=== PATIENT | male | born 1955 | race Caucasian/White ===

== ENCOUNTER 2020-10-04 16:24 | Observation (INO) ==
[2020-10-04 17:36] LABS: POC Blood Urea Nitrogen 13 mg/dL (6-20); POC CO2 25 mmol/L (22-30); POC Calcium, Ionized 1.12 mmEq/L (1.16-1.32); POC Chloride 101 mEq/L (96-108); POC Creatinine 0.6 mg/dL (0.6-1.2); POC Glucose, Random 86 mg/dL (70-105); POC Hematocrit 38 % (41-55); POC Potassium 3.4 mEql/L (3.3-5.1); POC Sodium 137 mEq/L (133-145)
--- NOTE | 2020-10-04 18:00 | Emergency Department Note ---
HPI General Chief complaint: Recheck/Abnormal Lab/Rx Stated complaint: "wants placement in facility" Time Seen by Provider: 10/04/20 17:05 Source: patient Mode of arrival: EMS Limitations: language barrier History of Present Illness HPI Narrative: This a 65-year-old male who presents with weakness. He has been a resident at [facility] since right [facility]AO 9 months ago. Case management tells me that he left AMA on Tuesday from [facility] nursing facility he checked himself into a motel [address] here locally, but cannot care for himself so try to go back to [facility]. Unfortunately, because he signed himself out AMA they have to reauthorize him for insurance to cover his continued SNF stay. He went over to [facility] with hopes that they can get him back into [facility], but unfortunately with the same situation he was discharged back to the mot 8. He then came over here to our ER to assist with placement back to [facility]. The patient tells me that he is wheelchair dependent after a right hip fracture and repair 9 months ago. He has been doing physical therapies at [facility] for strengthening, but is essentially nonambulatory due to chronic knee flexion contractures. He also states that he feels very weak and he cannot move himself from his wheelchair to his bed or to the commode. He has been eating and drinking, but endorses a poor appetite. He is a 2 pack-a-day smoker. Has has a history of hypertension, a long history of alcoholism, and cognitive dysfunction with self-care deficits. Related Data Home Medications Medication Instructions Recorded Confirmed acetaminophen 650 mg PO Q4HP PRN 01/15/20 01/23/20 amlodipine 5 mg PO DAILY 01/15/20 01/23/20 ascorbic acid (vitamin C) [Vitamin 250 mg PO DAILY 01/15/20 01/23/20 C] baclofen 5 mg PO TID 01/15/20 01/23/20 bisacodyl 10 mg PO PRN PRN 01/15/20 01/15/20 bisacodyl [Dulcolax (bisacodyl)] 10 mg AK ONCE PRN 01/15/20 01/15/20 citalopram 20 mg PO DAILY 01/15/20 01/23/20 docusate sodium 100 mg PO BID 01/15/20 01/23/20 hydrochlorothiazide 25 mg PO DAILY 01/15/20 01/23/20 magnesium hydroxide [Milk of 30 ml PO PRN PRN 01/15/20 01/23/20 Magnesia] magnesium oxide 400 mg PO BID 01/15/20 01/23/20 metoprolol succinate 50 mg PO DAILY 01/15/20 01/23/20 multivitamin 1 tab PO DAILY 01/15/20 01/23/20 naproxen sodium [Aleve] 220 mg PO BID 01/15/20 01/23/20 oxycodone 5 mg PO QID 01/15/20 01/23/20 polyethylene glycol 3350 17 g PO DAILY 01/15/20 01/23/20 potassium chloride 20 meq PO BIDCC 01/15/20 01/23/20 sodium phosphates [Fleet Enema] 118 ml AK ONCE PRN 01/15/20 01/15/20 thiamine HCl (vitamin B1) 100 mg PO DAILY 01/15/20 01/23/20 Previous Rx's Medication Instructions Recorded aspirin 325 mg PO BID #60 tab.ec 01/24/20 hydrocodone-acetaminophen 1 - 2 tab PO Q4H PRN #90 tab 01/24/20 Allergies Allergy/AdvReac Type Severity Reaction Status Date / Time No Known Drug Allergies Allergy Verified 01/23/20 05:56 Review of Systems ROS ROS Narrative: Narrative: All systems ED: reviewed and negative except as stated. [facility] Narrative Patient History Narrative: Narrative: Medical/Surgical/Family History All Active Problems (Updated 10/04/20 @ 20:37 by Ivory Dennis PA-C) Weakness (Acute) Self-care deficit (Acute) Ambulatory dysfunction (Acute) Social History Smoking Status: Current every day smoker Exam Narrative Narrative: General: AOx3, NAD, nontoxic appearing. Pleasant and conversant. HEENT: PERRLA, EOMI, normocephalic. Dry mucous membranes. Excoriations over the left side of the face. Chest: Symmetric, no pain to palpation Respiratory: Mild expiratory wheezes in the left middle lobe. No respiratory distress. Unlabored breathing. Heart: Regular rate and rhythm, no murmurs/clicks/rubs. Abdomen: Non-tender, Non distended, normal bowel tones. No organomegaly. Extremities: Warm and well perfused. 1+ pitting edema. DP 1+ bilaterally. Chronic bilateral venous stasis. He has bilateral knee flexion contractures with knee extension limited to about 145 degrees. Neuro: No focal deficits. Cranial nerves II-XII normal. Skin: Warm dry, no rashes. 2 small level 1 decubitus ulcers to the left buttock Psych: Normal mood and affect Heme/Lymph: No bruising General Limitations: language barrier Course Course Course Narrative: 65-year-old male presents with self-care deficits and inability to care for himself due to weakness and ambulatory dysfunction with wheelchair dependence. Reevaluation(s) Reevaluation #1: Given his weakness, will check a Chem-8 and a CBC, as well as a urine Reevaluation #2: He is anemic with a hemoglobin of 11.8. Urine shows UTI. Chem-8 without electrolyte abnormalities. Vital Signs Vital signs: Vital Signs Pulse Rate 83 10/04/20 16:33 Blood Pressure 127/82 10/04/20 16:33 Pulse Oximetry (%) 91 10/04/20 16:33 Temperature 98.8 F 10/04/20 16:34 Pulse Rate 79 10/04/20 20:27 Respiratory Rate 16 10/04/20 16:34 Blood Pressure 146/52 10/04/20 20:27 Pulse Oximetry (%) 90 10/04/20 20:27 [facility] MDM Narrative Medical decision making narrative: 65-year-old male presents to the ER with inability to care for himself due to weakness and ambulatory dysfunction with wheelchair dependence after checking himself out AMA from his half-way facility yesterday. At this time I discussed the case with case management who states that he does not meet admission criteria at this time. He will need a prior there is to be readmitted to a SNF, and given the holiday weekend that cannot happen until Tuesday. Unfortunately, the patient has profound self-care deficits and the inability to care for himself and is not a safe discharge to self-care. I discussed the case with the nurse mission manager and the hospitalist on service and he has agreed to admit the patient observation overnight. Lab Data Result diagrams: 10/04/20 17:28 Labs: Lab Results 10/04/20 10/04/20 10/04/20 Range/Units 17:28 17:28 17:43 WBC 8.7 (4.5-11.0) K/mcL RBC 4.30 L (4.50-5.90) M/mcL Hgb 11.8 L (13.5-16.5) g/dL Hct 36.9 L (41.0-55.0) % POC Hct 38 L (41-55) % MCV 85.8 (80.0-100.0) fL MCH 27.4 (26.0-34.0) pg MCHC 32.0 (31.0-36.0) g/dL RDW 17.1 H (11.5-14.5) % Plt Count 314 (140-440) K/mcL MPV 9.6 (7.4-10.4) fL Neut % (Auto) 71.9 (38.0-78.0) % Lymph % (Auto) 16.5 (15.0-49.0) % [place] % (Auto) 9.7 (1.0-12.0) % Eos % (Auto) 1.3 (0.0-7.0) % Baso % (Auto) 0.6 (0.0-2.0) % Lymph # (Auto) 1.43 L (1.50-4.80) K/mcL [place] # (Auto) 0.84 (0.10-0.90) K/mcL Eos # (Auto) 0.11 (0.00-0.70) K/mcL Baso # (Auto) 0.05 (0.00-0.20) K/mcL Absolute Neutrophils 6.25 (1.80-8.00) K/mcL POC Sodium 137 (133-145) mEq/L POC Potassium 3.4 (3.3-5.1) mEql/L POC Chloride 101 (96-108) mEq/L POC Total CO2 25 (22-30) mmol/L POC BUN 13 (6-20) mg/dL POC Creatinine 0.6 (0.6-1.2) mg/dL POC Glucose 86 (70-105) mg/dL POC WB Ioniz Calcium 1.12 L (1.16-1.32) mmEq/L Urine Color Yellow Urine Appearance Clear (Clear) Urine pH 7.5 (5.0-9.0) Ur Specific [place] 1.020 (1.000-1.035) Urine Protein Trace A (Negative) mg/dL Urine Glucose (UA) Negative (Negative) mg/dL Urine Ketones 15 mg/dl A (Negative) mg/dL Urine Occult Blood Trace-intact A (Negative) sabino/mcL Urine Nitrate Negative (Negative) Urine Bilirubin Negative (Negative) mg/dL Urine Urobilinogen Normal mg/dL Ur Leukocyte Esterase Large A (Negative) /ug Urine RBC 4 H (0-3) /hpf Urine WBC 19 H (0-4) /hpf Ur Squamous Epith Cells 1 (0-4) /hpf Ur Transition Epith Cell < 1 (0-2) /hpf Urine Bacteria Mod A (0) /hpf Urine Mucus Few A (None) /hpf Ur Culture Indicated? yes ED POC Tests ED POC Tests: WEN - SARS Antigen Negative Discharge Plan Patient/Caregiver Discharge Instructions Pt seen by TECHNICAL INTERN/PA only: Yes Clinical Impression: Weakness, Self-care deficit, Ambulatory dysfunction Patient Disposition: Xfer As Inpt ([facility]) Follow up with: Everton Bill MD [Primary Care Provider] - Prescriptions: No Action multivitamin Tablet 1 tab PO DAILY RF: 0 metoprolol succinate 50 mg Tablet Extended Release 24 Hr 50 mg PO DAILY RF: 0 thiamine HCl (vitamin B1) 100 mg Tablet 100 mg PO DAILY RF: 0 amlodipine 5 mg Tablet 5 mg PO DAILY RF: 0 citalopram 20 mg Tablet 20 mg PO DAILY RF: 0 ascorbic acid (vitamin C) [Vitamin C] 250 mg Tablet 250 mg PO DAILY RF: 0 naproxen sodium [Aleve] 220 mg Tablet 220 mg PO BID RF: 0 hydrochlorothiazide 25 mg Tablet 25 mg PO DAILY RF: 0 docusate sodium 100 mg Tablet 100 mg PO BID RF: 0 oxycodone 5 mg Tablet 5 mg PO QID RF: 0 potassium chloride 20 mEq Tablet Extended Release 20 meq PO BIDCC RF: 0 baclofen 5 mg Tablet 5 mg PO TID RF: 0 magnesium oxide 400 mg magnesium Tablet 400 mg PO BID RF: 0 acetaminophen 325 mg Tablet 650 mg PO Q4HP PRN (Reason: PAIN/ELEVATED TEMP) RF: 0 polyethylene glycol 3350 17 gram Powder In Packet 17 g PO DAILY RF: 0 magnesium hydroxide [Milk of Magnesia] 400 mg/5 mL Suspension 30 ml PO PRN PRN (Reason: Constipation) RF: 0 bisacodyl [Dulcolax (bisacodyl)] 10 mg Suppository 10 mg AK ONCE PRN (Reason: Constipation) RF: 0 Fleet Enema 19-7 gram/118 mL Enema 118 ml AK ONCE PRN (Reason: Constipation) RF: 0 bisacodyl 5 mg Tablet 10 mg PO PRN PRN (Reason: Constipation) RF: 0 hydrocodone-acetaminophen 10-325 mg Tablet 1 - 2 tab PO Q4H PRN (Reason: pain) Qty: 90 RF: 0 aspirin [aspirin] 325 MG tablet,delayed release (DR/EC) 325 mg PO BID Qty: 60 RF: 0
[2020-10-04 18:08] LABS: Basophils # (Auto) 0.05 K/mcL (0.00-0.20); Basophils % (Auto) 0.6 % (0.0-2.0); Eosinophils # (Auto) 0.11 K/mcL (0.00-0.70); Eosinophils % (Auto) 1.3 % (0.0-7.0); Hematocrit 36.9 % (41.0-55.0); Hemoglobin 11.8 g/dL (13.5-16.5); Lymphocytes # (Auto) 1.43 K/mcL (1.50-4.80); Lymphocytes % (Auto) 16.5 % (15.0-49.0); Mean Cell Volume 85.8 fL (80.0-100.0); Mean Platelet Volume 9.6 fL (7.4-10.4); Monocytes # (Auto) 0.84 K/mcL (0.10-0.90); Monocytes % (Auto) 9.7 % (1.0-12.0); Neutrophils % (Auto) 71.9 % (38.0-78.0); Platelet Count 314 K/mcL (140-440); Red Cell Distribution Width 17.1 % (11.5-14.5); WBC 8.7 K/mcL (4.5-11.0)
[2020-10-04 18:12] LABS: Appearance,Urine Clear (Clear); Bacteria,Urine MOD /hpf (0); Bilirubin,Urine Negative (Negative); Color,Urine Yellow; Culture Indicated,Urine yes; Glucose,Urine (UA) Negative (Negative); Ketones,Urine 15 mg/dL mg/dL (Negative); Leukocyte Esterase,Urine Large /ug (Negative); Mucus,Urine FEW /hpf; Nitrate,Urine Negative (Negative); PH,Urine 7.5 (5.0-9.0); Protein,Urine Trace mg/dL (Negative); Urine Blood Trace-intact ery/mcL (Negative); Urine RBC 4 /hpf (0-3); Urine Squamous Epithelial Cell 1 /hpf (0-4); Urine Transitional Epi Cells < 1 /hpf (0-2); Urine WBC 19 /hpf (0-4); Urobilinogen,Urine Normal
[2020-10-04] MEDS ORDERED: CEPHALEXIN 250 MG CAPSULE PO ONE (19:24)
[2020-10-04] MEDS ORDERED: CEPHALEXIN (PP) 250 MG CAPSULE (#4) PO SCH (19:45)
--- NOTE | 2020-10-04 20:10 | Internal Med History&Physical ---
HPI History of Present Illness Patient information: Note initiated : 10/04/20 at 8:07 pm Service Date, if different from initiated Date: [] Patient: Campbell Rodriguez 65 y/o M admitted on for "wants placement in facility". Chief Complaint: [] History of present illness: Mr. Rodriguez is a 65 year old M Presents the ED try to get back into a nursing facility. Patient was at [facility] and April for buttocks wound with maggots not caring for himself history of alcoholism. He was in [facility] for over a week and discharged to nursing facility. He left AMA from the nursing facility about 3 days ago and been living in a motel. He went to [facility] today to try to get back in nursing facility but they would not take him and he needs to be reevaluated but did not meet any admission criteria so was discharged. He then came over to [facility] because he cannot take care of himself he cannot transition from wheelchair he is a high risk for a number of situations including Falling, pressure wounds and subsequent infection. The patient has nobody to help care for him while awaiting placement back in SNF In the ED is found to have a low sodium he does have a history of hyponatremia but this is acute on chronic. also found to have a UTI. Review of Systems: Positive as above. Denies headache/fever/chills/nausea/vomiting/chest or abdominal pain/cough/dyspnea/diarrhea. Otherwise see above. MEDS/ALLERGIES Home Medications and Allergies Home Medications Medication Instructions Recorded Confirmed Type acetaminophen 650 mg PO Q4HP PRN 01/15/20 01/23/20 History amlodipine 5 mg PO DAILY 01/15/20 01/23/20 History ascorbic acid (vitamin C) [Vitamin 250 mg PO DAILY 01/15/20 01/23/20 History C] baclofen 5 mg PO TID 01/15/20 01/23/20 History bisacodyl 10 mg PO PRN PRN 01/15/20 01/15/20 History bisacodyl [Dulcolax (bisacodyl)] 10 mg AL ONCE PRN 01/15/20 01/15/20 History citalopram 20 mg PO DAILY 01/15/20 01/23/20 History docusate sodium 100 mg PO BID 01/15/20 01/23/20 History hydrochlorothiazide 25 mg PO DAILY 01/15/20 01/23/20 History magnesium hydroxide [Milk of 30 ml PO PRN PRN 01/15/20 01/23/20 History Magnesia] magnesium oxide 400 mg PO BID 01/15/20 01/23/20 History metoprolol succinate 50 mg PO DAILY 01/15/20 01/23/20 History multivitamin 1 tab PO DAILY 01/15/20 01/23/20 History naproxen sodium [Aleve] 220 mg PO BID 01/15/20 01/23/20 History oxycodone 5 mg PO QID 01/15/20 01/23/20 History polyethylene glycol 3350 17 g PO DAILY 01/15/20 01/23/20 History potassium chloride 20 meq PO BIDCC 01/15/20 01/23/20 History sodium phosphates [Fleet Enema] 118 ml AL ONCE PRN 01/15/20 01/15/20 History thiamine HCl (vitamin B1) 100 mg PO DAILY 01/15/20 01/23/20 History aspirin 325 mg PO BID #60 tab.ec 01/24/20 Rx hydrocodone-acetaminophen 1 - 2 tab PO Q4H PRN #90 tab 01/24/20 Rx Allergies Allergy/AdvReac Type Severity Reaction Status Date / Time No Known Drug Allergies Allergy Verified 01/23/20 05:56 EXAM Constitutional Vitals: Temp Pulse Resp BP Pulse Ox 98.8 F 86 16 150/66 91 10/04/20 16:34 10/04/20 20:01 10/04/20 16:34 10/04/20 20:01 10/04/20 20:01 Exam: General: Alert, Awake, No acute Distress Eyes/N/T: EOMI, PERRL, Head/Neck: neck supple, normocephalic atraumatic CV: RRR, No murmurs, normal s1/s2 Pulm: Clear b/l, no wheezing/rhonchi/rales Abd: soft, nontender, +BS x4 Ext: no clubbing/cyanosis, evidence of cast edema, venous stasis Neuro: Alert, no focal deficits, moves all extremities, CN 2-12 grossly intact, symmetrical strength b/l upper/lower, sensations intact b/l upper/lower Skin: warm/dry DATA Data Completed and Pending Labs: Labs from last 24 hours 10/04/20 10/04/20 10/04/20 17:43 17:28 17:28 WBC 8.7 RBC 4.30 L Hgb 11.8 L Hct 36.9 L POC Hct 38 L MCV 85.8 MCH 27.4 MCHC 32.0 RDW 17.1 H Plt Count 314 MPV 9.6 Neut % (Auto) 71.9 Lymph % (Auto) 16.5 [place] % (Auto) 9.7 Eos % (Auto) 1.3 Baso % (Auto) 0.6 Lymph # (Auto) 1.43 L [place] # (Auto) 0.84 Eos # (Auto) 0.11 Baso # (Auto) 0.05 Absolute Neutrophils 6.25 POC Sodium 137 POC Potassium 3.4 POC Chloride 101 POC Total CO2 25 POC BUN 13 POC Creatinine 0.6 POC Glucose 86 POC WB Ioniz Calcium 1.12 L Urine Color Yellow Urine Appearance Clear Urine pH 7.5 Ur Specific [place] 1.020 Urine Protein Trace A Urine Glucose (UA) Negative Urine Ketones 15 mg/dl A Urine Occult Blood Trace-intact A Urine Nitrate Negative Urine Bilirubin Negative Urine Urobilinogen Normal Ur Leukocyte Esterase Large A Urine RBC 4 H Urine WBC 19 H Ur Squamous Epith Cells 1 Ur Transition Epith Cell < 1 Urine Bacteria Mod A Urine Mucus Few A Ur Culture Indicated? yes A/P Narrative A/P Narrative: A: *Self-care deficit/Severe disability: pt is unsafe discharge from ED *Hyponatremia, acute on chronic: *UTI: *h/o alcoholism: Has not had any alcohol at the nursing facility and states he only has 3 beers since he got out 3 days ago *Anemia, chronic: *Tobacco abuse: * P: -IVF, f/u sodium -urine studies -Rocephin pending UC -hold home hctz if on -clarify home meds -CM for placement -pt/ot -Looking cessation counseling -ppx: lovenox DNR Time Spent With Patient Time: Total time spent is greater than 50% in coordination of care (as documented) at patient's floor/unit and/or counseling patient:
[2020-10-04] MEDS ORDERED: POTASSIUM CHLORIDE 40 MEQ in DEXTROSE 5% IN WATER 500 ML IV PRN (21:33)
[2020-10-04] MEDS ORDERED: POLYETHYLENE GLYCOL 3350 17 GM PACKET PO PRN (21:33)
[2020-10-04] MEDS ORDERED: 0.9 % SODIUM CHLORIDE 1,000 ML IV SCH (21:33)
[2020-10-04] MEDS ORDERED: ONDANSETRON 4 MG/2 ML VIAL IV PRN (21:33)
[2020-10-04] MEDS ORDERED: MAGNESIUM SULFATE 2 GM/50 ML BAG IV PRN (21:33)
[2020-10-04] MEDS ORDERED: SENNOSIDES 1 TABLET PO PRN (21:33)
[2020-10-04] MEDS ORDERED: ACETAMINOPHEN 325 MG TABLET PO PRN (21:33)
[2020-10-04] MEDS ORDERED: SODIUM CHLORIDE 1 GM TABLET PO SCH (21:33)
[2020-10-04] MEDS ORDERED: POTASSIUM CHLORIDE 20 MEQ TABLET PO PRN ×2 (21:33)
[2020-10-04] MEDS ORDERED: IPRATROPIUM/ALBUTEROL 3 ML AMPUL.NEB NEB PRN (21:33)
[2020-10-04] MEDS: DOCUSATE SODIUM 100 MG CAPSULE PO SCH (22:31)
[2020-10-04] MEDS: 0.9 % SODIUM CHLORIDE 10 ML SYRINGE IV SCH (22:31)
[2020-10-04 22:43] LABS: Amphetamine Screen,Urine None detected; Barbiturate Screen,Urine None detected; Benzodiazepines Screen,Urine None detected; Cannabinoid Screen,Urine None detected; Cocaine Screen,Urine None detected; Opiate Screen,Urine None detected; Oxycodone, Urine Screen Suspect Positive; Phencyclidine Screen,Urine None detected
[2020-10-04] MEDS: cefTRIAXone 1 GM VIAL IV SCH (22:52)
[2020-10-05] MEDS: 0.9 % SODIUM CHLORIDE 10 ML SYRINGE IV SCH ×3 (05:29→20:44)
[2020-10-05] MEDS ORDERED: FLEETS ADULT ENEMA PR PRN (07:24)
[2020-10-05] MEDS ORDERED: oxyCODONE HCL 5 MG TABLET PO PRN (07:24)
--- NOTE | 2020-10-05 07:28 | Internal Med Progress Note ---
SUBJECTIVE Subjective Patient information: Note initiated : 10/05/20 at 7:23 am Service Date, if different from initiated Date: [] Patient: Campbell Rodriguez 65 y/o M admitted on 10/04/20 for "wants placement in facility". Chief Complaint: [] Interval history: History of present illness: Mr. Rodriguez is a 65 year old M Presents the ED try to get back into a nursing facility. Patient was at [facility] and April for buttocks wound with maggots not caring for himself history of alcoholism. [facility] facility. He left AMA from the nursing facility about 3 days ago and been living in a motel. He went to [facility] today to try to get back in nursing facility but they would not take him and he needs to be reevaluated but did not meet any admission criteria so was discharged. He then came over to [facility] because he cannot take care of himself he cannot transition from wheelchair he is a high risk for a number of situations including Falling, pressure wounds and subsequent infection. The patient has nobody to help care for him while awaiting placement back in SNF In the ED is found to have a low sodium he does have a history of hyponatremia but this is acute on chronic. also found to have a UTI. / No overnight event or new complaints. Review of Systems: denies headache/fever/chills/nausea/vomiting/chest or abdominal pain/cough/dyspnea/diarrhea. Otherwise see above. Constitutional Vitals: Vital Signs Temp Pulse Resp BP Pulse Ox 98.9 F 75 16 152/68 94 10/05/20 06:45 10/05/20 06:45 10/05/20 06:45 10/05/20 06:45 10/05/20 06:45 Period Temp Pulse Resp BP Sys/May Pulse Ox Last 24 Hr 98 F-98.9 F 74-88 12-20 127-164/51-82 90-95 Intake and Output 10/04/20 10/05/20 10/05/20 21:59 05:59 13:59 Intake Total 100 Output Total 350 Balance -250 Weight 77.111 kg Intake & Output: Intake & Output 10/04/20 10/05/20 10/05/20 21:59 05:59 13:59 Intake Total 100 Output Total 350 Balance -250 Weight 77.111 kg Intake: Oral 100 Output: Void Amount 350 Other: Meal tuna sandwich Percent of Meal Consumed 100% Feeding Ability Independent Urine Appearance Clear Urine Color Bright Yellow Exam: General: Alert, Awake, No acute Distress Eyes/N/T: EOMI, Head/Neck: neck supple, CV: RRR, No murmurs, Pulm: Clear b/l, no wheezing/rhonchi/rales Abd: soft, nontender, +BS x4 Ext: no clubbing/cyanosis, evidence of h/o edema, venous stasis Neuro: Alert, no focal deficits, moves all extremities, Skin: warm/dry OBJ DATA Labs CBC & Chem 7: 10/04/20 17:28 10/05/20 05:45 Labs: Abnormal Lab Results 10/04/20 10/04/20 10/04/20 19:57 17:43 17:28 RBC 4.30 L Hgb 11.8 L Hct 36.9 L POC Hct RDW 17.1 H Lymph # (Auto) 1.43 L POC WB Ioniz Calcium Urine Protein Trace A Urine Ketones 15 mg/dl A Urine Occult Blood Trace-intact A Ur Leukocyte Esterase Large A Urine RBC 4 H Urine WBC 19 H Urine Bacteria Mod A Urine Mucus Few A Ur Oxycodone Screen Suspect positive A 10/04/20 17:28 RBC Hgb Hct POC Hct 38 L RDW Lymph # (Auto) POC WB Ioniz Calcium 1.12 L Urine Protein Urine Ketones Urine Occult Blood Ur Leukocyte Esterase Urine RBC Urine WBC Urine Bacteria Urine Mucus Ur Oxycodone Screen Meds: Medications Acetaminophen (Acetaminophen 325 Mg Tablet) 650 mg PO Q6HP PRN PRN Reason: PAIN/FEVER > 101 Albuterol/Ipratropium (Ipratropium/Albuterol 3 Ml Ampul.Neb) 3 ml NEB Q4HP PRN PRN Reason: Shortness Of Breath Ceftriaxone Sodium (Ceftriaxone 1 Gm Vial) 1 gm IV Q24H [facility]; Protocol Last Admin: 10/04/20 22:52 Dose: 1 gm Documented by: Docusate Sodium (Docusate Sodium 100 Mg Capsule) 100 mg PO BID DAO Last Admin: 10/04/20 22:31 Dose: Not Given Documented by: Enoxaparin Sodium (Enoxaparin 40 Mg/0.4 Ml Syringe) 40 mg SQ DAILY [facility] Potassium Chloride 40 meq/ (Dextrose) 520 mls @ 130 mls/hr IV UD PRN PRN Reason: Potassium < 3 Magnesium Sulfate (Magnesium Sulfate) 2 gm in 50 mls @ 50 mls/hr IV UD PRN PRN Reason: Magnesium </= 1.6 Sodium Chloride (Sodium Chloride 0.9%) 1,000 mls @ 100 mls/hr IV .Q10H [facility] Stop: 10/05/20 07:32 Last Admin: 10/04/20 22:31 Dose: 100 mls/hr Documented by: Labetalol HCl (Labetalol 5 Mg/Ml Ml) 0 mg IV Q2HP PRN PRN Reason: Hypertension Nicotine (Nicotine 21 Mg Patch) 21 mg TOPICAL DAILY@1000 [facility] Ondansetron HCl (Ondansetron 4 Mg/2 Ml Vial) 4 mg IV Q4HP PRN PRN Reason: Nausea And Vomiting Polyethylene Glycol (Polyethylene Glycol 3350 17 Gm Packet) 17 gm PO DAILYP PRN PRN Reason: Constipation Potassium Chloride (Potassium Chloride 20 Meq Tablet) 40 meq PO UD PRN PRN Reason: Potssium is 3-3.5 Potassium Chloride (Potassium Chloride 20 Meq Tablet) 40 meq PO UD PRN PRN Reason: Potassium < 3 Senna (Sennosides 1 Tablet) 2 tab PO DAILYP PRN PRN Reason: Constipation Sodium Chloride (0.9 % Sodium Chloride 10 Ml Syringe) 10 ml IV Q8 [facility] Last Admin: 10/05/20 05:29 Dose: Not Given Documented by: Sodium Chloride (Sodium Chloride 1 Gm Tablet) 1 gm PO TID [facility] Last Admin: 10/04/20 22:52 Dose: 1 gm Documented by: A/P Narrative A/P Narrative: A: *Self-care deficit/Severe disability: pt is unsafe discharge from ED *UTI: *h/o alcoholism: Has not had any alcohol at the nursing facility and states he only has 3 beers since he got out 3 days ago *Anemia, chronic: *Tobacco abuse: *HTN: on norvasc *Depression: *buttock pressure ulcer P: -Rocephin pending UC -cont home norvas/BB -cont home baclofen -wound care -CM for placement -pt/ot -Looking cessation counseling -ppx: lovenox DNR Time Spent With Patient Time: Total time spent is greater than 50% in coordination of care (as documented) at patient's floor/unit and/or counseling patient: QUALITY Stroke Symptom Onset Unknown: No VTE Deep Vein Thrombosis/Pulmonary Embolism Present on Admission: No
[2020-10-05 07:35] LABS: ALT/SGPT 7 U/L (<40); AST/SGOT 10 U/L (<40); Albumin 3.2 gm/dL (3.2-5.2); Albumin/Globulin Ratio 0.8 (1.0-2.3); Alkaline Phosphatase 102 U/L (39-117); Bilirubin,Direct < 0.2 mg/dL (0-0.3); Bilirubin,Total 0.3 mg/dL (0.1-1.0); Blood Urea Nitrogen 13 mg/dL (8-23); Calcium 8.9 mg/dL (8.6-10.4); Carbon Dioxide 24 mmol/L (22-30); Chloride 104 mmol/L (96-108); Globulin 3.9 gm/dL (2.2-3.7); Glomerular Filtration Rate 105; Glucose 81 mg/dL (70-105); Lactate Dehydrogenase 164 U/L (135-225); Phosphorous 3.3 mg/dL (2.5-4.5); Triglycerides 88 mg/dL (<150); Uric Acid 7.8 mg/dL (2.5-8.0)
[2020-10-05 08:00] LABS: Sodium, Urine Random 82 mmol/L; Uric Acid 7.3 mg/dL (2.5-8.0)
[2020-10-05 08:17] LABS: Osmolality,Urine 412 mOSM/kg (80-1000)
--- NOTE | 2020-10-05 09:05 | Discharge Summary ---
Discharge Provider Provider Patient information: Note initiated : 10/05/20 at 9:04 am Service Date, if different from initiated Date: [] Patient: Campbell Rodriguez 65 y/o M admitted on 10/04/20 for "wants placement in facility". Chief Complaint: [] Date of admission: 10/04/20 21:31 Discharge date: 10/06/20 Primary care physician: Everton Bill Consults: 10/05/20 08:22 Consult to Physician [CONS] Routine Comment: Consulting Provider: [place] Reason For Exam: Physician to Consult Discharge Meds Discharge Medications Home Medications acetaminophen 650 mg PO Q4HP PRN 01/15/20 [History Confirmed 10/04/20 Last Taken 01/22/20] amlodipine 5 mg PO DAILY 01/15/20 [History Confirmed 10/04/20 Last Taken 10/03/20 07:00] ascorbic acid (vitamin C) [Vitamin C] 250 mg PO DAILY 01/15/20 [History Confirmed 10/04/20 Last Taken 10/03/20 07:00] baclofen 5 mg PO TID 01/15/20 [History Confirmed 10/04/20 Last Taken 10/03/20 12:00] bisacodyl [Dulcolax (bisacodyl)] 10 mg ND PRN PRN 01/15/20 [History Confirmed 10/04/20 Last Taken Unknown] citalopram 20 mg PO DAILY 01/15/20 [History Confirmed 10/04/20 Last Taken 10/03/20 07:00] docusate sodium 100 mg PO BID 01/15/20 [History Confirmed 10/04/20 Last Taken 10/03/20 07:00] hydrochlorothiazide 25 mg PO DAILY 01/15/20 [History Confirmed 10/04/20 Last Taken 10/03/20 07:00] metoprolol succinate 50 mg PO DAILY 01/15/20 [History Confirmed 10/04/20 Last Taken 10/03/20 07:00] multivitamin 1 tab PO DAILY 01/15/20 [History Confirmed 10/04/20 Last Taken 10/03/20 07:00] oxycodone 5 mg PO QID 01/15/20 [History Confirmed 10/04/20 Last Taken 10/03/20 12:00] polyethylene glycol 3350 17 g PO DAILY 01/15/20 [History Confirmed 10/04/20 Last Taken 10/03/20 07:00] potassium chloride 20 meq PO BIDCC 01/15/20 [History Confirmed 10/04/20 Last Taken 10/03/20 07:00] thiamine HCl (vitamin B1) 100 mg PO DAILY 01/15/20 [History Confirmed 10/04/20 Last Taken 10/03/20 07:00] Fleet Enema 118 ml ND PRN PRN 10/04/20 [History Confirmed 10/05/20 Last Taken Unknown] cholecalciferol (vitamin D3) [Vitamin D3] 1,000 unit PO DAILY 10/04/20 [History Confirmed 10/04/20 Last Taken 10/03/20 07:00] ferrous sulfate 325 mg PO BID 10/04/20 [History Confirmed 10/04/20 Last Taken 10/03/20 07:00] omeprazole 20 mg PO QDAY 10/04/20 [History Confirmed 10/04/20 Last Taken 10/03/20 07:00] ranitidine HCl 150 mg PO DAILYP PRN 10/04/20 [History Confirmed 10/04/20 Last Taken Unknown] magnesium hydroxide [Milk of Magnesia] 30 ml PO PRN PRN 10/05/20 [History Confirmed 10/05/20 Last Taken 10/02/20 21:56] amoxicillin 500 mg PO TID #9 cap 10/06/20 [Rx Last Taken Unknown] COURSE Hospital Course Hospital course: History of present illness: Mr. Rodriguez is a 65 year old M Presents the ED try to get back into a nursing facility. Patient was at [facility] and April for buttocks wound with maggots not caring for himself history of alcoholism. [facility] to nursing facility. He left AMA from the nursing facility about 3 days ago and been living in a motel. He went to [facility] today to try to get back in nursing facility but they would not take him and he needs to be reevaluated but did not meet any admission criteria so was discharged. He then came over to [facility] because he cannot take care of himself he cannot transition from wheelchair he is a high risk for a number of situations including Falling, pressure wounds and subsequent infection. The patient has nobody to help care for him while awaiting placement back in SNF In the ED is found to have a low sodium he does have a history of hyponatremia but this is acute on chronic. also found to have a UTI. / No overnight event or new complaints. / No overnight event or new complaints. No changes in status. A: *Self-care deficit/Severe disability: pt is unsafe discharge from ED *UTI(enteroccus): *h/o alcoholism: Has not had any alcohol at the nursing facility and states he only has 3 beers since he got out 3 days ago *Anemia, chronic: *Tobacco abuse: *HTN: on norvasc *Depression: *buttock pressure ulcer Discharge diagnosis: Inability to care for self UTI Secondary discharge diagnosis: Chronic anemia tobacco abuse hypertension depression Time Spent with Patient Time attestation: Total time spent providing and/or coordinating discharge services: Time spent: Greater than 30 minutes EXAM Constitutional Vitals: Temp Pulse Resp BP Pulse Ox 98.9 F 75 16 152/68 94 10/05/20 06:45 10/05/20 06:45 10/05/20 06:45 10/05/20 06:45 10/05/20 06:45 Discharge Data Data Completed and Pending Labs on day of discharge: Labs from last 24 hours 10/05/20 10/04/20 10/04/20 05:45 21:19 21:19 WBC RBC Hgb Hct POC Hct MCV MCH MCHC RDW Plt Count MPV Neut % (Auto) Lymph % (Auto) [facility] % (Auto) Eos % (Auto) Baso % (Auto) Lymph # (Auto) [facility] # (Auto) Eos # (Auto) Baso # (Auto) Absolute Neutrophils POC Sodium Sodium 139 POC Potassium Potassium 3.7 POC Chloride Chloride 104 Carbon Dioxide 24 POC Total CO2 Anion Gap 11.0 POC BUN BUN 13 Creatinine 0.6 L POC Creatinine GFR Calculation 105 Glucose 81 POC Glucose Osmolality 294 Uric Acid 7.8 7.3 Calcium 8.9 POC WB Ioniz Calcium Phosphorus 3.3 Magnesium 1.8 Total Bilirubin 0.3 Direct Bilirubin < 0.2 GGT 16 AST 10 ALT 7 Alkaline Phosphatase 102 Lactate Dehydrogenase 164 Total Protein 7.1 Albumin 3.2 Globulin 3.9 H Albumin/Globulin Ratio 0.8 L Triglycerides 88 Urine Color Urine Appearance Urine pH Ur Specific [place] Urine Protein Urine Glucose (UA) Urine Ketones Urine Occult Blood Urine Nitrate Urine Bilirubin Urine Urobilinogen Ur Leukocyte Esterase Urine RBC Urine WBC Ur Squamous Epith Cells Ur Transition Epith Cell Urine Bacteria Urine Mucus Ur Culture Indicated? Urine Osmolality 412 Ur Random Sodium 82 Urine Opiates Screen Ur Opiates Confirm Ur Oxycodone Screen Urine Methadone Screen Ur Methadone Confirm Ur Barbiturates Screen Ur Barbiturate Confirm Ur Phencyclidine Scrn Urine PCP Confirm Ur Amphetamines Screen U Amphetamines Confirm U Benzodiazepines Scrn U Benzodiazepine Confm Urine Cocaine Screen Urine Cocaine Confirm U Cannabinoids Confirm U Marijuana (THC) Screen Ethyl Alcohol 10/04/20 10/04/20 10/04/20 19:57 19:57 17:43 WBC RBC Hgb Hct POC Hct MCV MCH MCHC RDW Plt Count MPV Neut % (Auto) Lymph % (Auto) [facility] % (Auto) Eos % (Auto) Baso % (Auto) Lymph # (Auto) [facility] # (Auto) Eos # (Auto) Baso # (Auto) Absolute Neutrophils POC Sodium Sodium POC Potassium Potassium POC Chloride Chloride Carbon Dioxide POC Total CO2 Anion Gap POC BUN BUN Creatinine POC Creatinine GFR Calculation Glucose POC Glucose Osmolality Uric Acid Calcium POC WB Ioniz Calcium Phosphorus Magnesium Total Bilirubin Direct Bilirubin GGT AST ALT Alkaline Phosphatase Lactate Dehydrogenase Total Protein Albumin Globulin Albumin/Globulin Ratio Triglycerides Urine Color Yellow Urine Appearance Clear Urine pH 7.5 Ur Specific [place] 1.020 Urine Protein Trace A Urine Glucose (UA) Negative Urine Ketones 15 mg/dl A Urine Occult Blood Trace-intact A Urine Nitrate Negative Urine Bilirubin Negative Urine Urobilinogen Normal Ur Leukocyte Esterase Large A Urine RBC 4 H Urine WBC 19 H Ur Squamous Epith Cells 1 Ur Transition Epith Cell < 1 Urine Bacteria Mod A Urine Mucus Few A Ur Culture Indicated? yes Urine Osmolality Ur Random Sodium Urine Opiates Screen None detected Ur Opiates Confirm Not Reportable Ur Oxycodone Screen Suspect positive A Urine Methadone Screen None detected Ur Methadone Confirm Not Reportable Ur Barbiturates Screen None detected Ur Barbiturate Confirm Not Reportable Ur Phencyclidine Scrn None detected Urine PCP Confirm Not Reportable Ur Amphetamines Screen None detected U Amphetamines Confirm Not Reportable U Benzodiazepines Scrn None detected U Benzodiazepine Confm Not Reportable Urine Cocaine Screen None detected Urine Cocaine Confirm Not Reportable U Cannabinoids Confirm Not Reportable U Marijuana (THC) Screen None detected Ethyl Alcohol TNP 10/04/20 10/04/20 17:28 17:28 WBC 8.7 RBC 4.30 L Hgb 11.8 L Hct 36.9 L POC Hct 38 L MCV 85.8 MCH 27.4 MCHC 32.0 RDW 17.1 H Plt Count 314 MPV 9.6 Neut % (Auto) 71.9 Lymph % (Auto) 16.5 [facility] % (Auto) 9.7 Eos % (Auto) 1.3 Baso % (Auto) 0.6 Lymph # (Auto) 1.[address] [facility] # (Auto) 0.84 Eos # (Auto) 0.11 Baso # (Auto) 0.05 Absolute Neutrophils 6.25 POC Sodium 137 Sodium POC Potassium 3.4 Potassium POC Chloride 101 Chloride Carbon Dioxide POC Total CO2 25 Anion Gap POC BUN 13 BUN Creatinine POC Creatinine 0.6 GFR Calculation Glucose POC Glucose 86 Osmolality Uric Acid Calcium POC WB Ioniz Calcium 1.12 L Phosphorus Magnesium Total Bilirubin Direct Bilirubin GGT AST ALT Alkaline Phosphatase Lactate Dehydrogenase Total Protein Albumin Globulin Albumin/Globulin Ratio Triglycerides Urine Color Urine Appearance Urine pH Ur Specific [place] Urine Protein Urine Glucose (UA) Urine Ketones Urine Occult Blood Urine Nitrate Urine Bilirubin Urine Urobilinogen Ur Leukocyte Esterase Urine RBC Urine WBC Ur Squamous Epith Cells Ur Transition Epith Cell Urine Bacteria Urine Mucus Ur Culture Indicated? Urine Osmolality Ur Random Sodium Urine Opiates Screen Ur Opiates Confirm Ur Oxycodone Screen Urine Methadone Screen Ur Methadone Confirm Ur Barbiturates Screen Ur Barbiturate Confirm Ur Phencyclidine Scrn Urine PCP Confirm Ur Amphetamines Screen U Amphetamines Confirm U Benzodiazepines Scrn U Benzodiazepine Confm Urine Cocaine Screen Urine Cocaine Confirm U Cannabinoids Confirm U Marijuana (THC) Screen Ethyl Alcohol Preliminary micro results at discharge 10/04/20 17:43 Urine Culture - Preliminary Urine - Clean Void Mid-Stream Discharge Plan Patient/Caregiver Discharge Instructions Activity: increase activity as tolerated Diet: Regular Diet Prescriptions: New amoxicillin 250 mg Capsule 500 mg PO TID Qty: 9 RF: 0 Continued multivitamin Tablet 1 tab PO DAILY RF: 0 metoprolol succinate 50 mg Tablet Extended Release 24 Hr 50 mg PO DAILY RF: 0 thiamine HCl (vitamin B1) 100 mg Tablet 100 mg PO DAILY RF: 0 amlodipine 5 mg Tablet 5 mg PO DAILY RF: 0 citalopram 20 mg Tablet 20 mg PO DAILY RF: 0 ascorbic acid (vitamin C) [Vitamin C] 250 mg Tablet 250 mg PO DAILY RF: 0 hydrochlorothiazide 25 mg Tablet 25 mg PO DAILY RF: 0 docusate sodium 100 mg Tablet 100 mg PO BID RF: 0 oxycodone 5 mg Tablet 5 mg PO QID RF: 0 potassium chloride 20 mEq Tablet Extended Release 20 meq PO BIDCC RF: 0 baclofen 5 mg Tablet 5 mg PO TID RF: 0 acetaminophen 325 mg Tablet 650 mg PO Q4HP PRN (Reason: PAIN/ELEVATED TEMP) RF: 0 polyethylene glycol 3350 17 gram Powder In Packet 17 g PO DAILY RF: 0 bisacodyl [Dulcolax (bisacodyl)] 10 mg Suppository 10 mg ND PRN PRN (Reason: Constipation) RF: 0 omeprazole 20 mg Capsule,Delayed Release(Dr/Ec) 20 mg PO QDAY RF: 0 ranitidine HCl 150 mg Tablet 150 mg PO DAILYP PRN (Reason: Abdominal Discomfort) RF: 0 cholecalciferol (vitamin D3) [Vitamin D3] 25 mcg (1,000 unit) Tablet 1,000 unit PO DAILY RF: 0 ferrous sulfate 325 mg (65 mg iron) Tablet 325 mg PO BID RF: 0 Fleet Enema 19-7 gram/118 mL Enema 118 ml ND PRN PRN (Reason: Constipation) RF: 0 magnesium hydroxide [Milk of Magnesia] 400 mg/5 mL Suspension 30 ml PO PRN PRN (Reason: Constipation) RF: 0 Follow Up Plan Follow up with: Everton Bill MD [Primary Care Provider] - Patient Disposition: Xfer SNF Prognosis: Fair Rehab Potential: Fair I certify that the patient requires SNF services: Yes Overall status at discharge: patient is progressing back to baseline Discharge Orders: Discharge Order (Routine); Ordered 10/06/20 Ordered By: Cal River [facility] VTE Deep Vein Thrombosis/Pulmonary Embolism Present on Admission: No
[2020-10-05] MEDS: FERROUS SULFATE 325 MG TABLET PO SCH ×2 (10:46→16:07)
[2020-10-05] MEDS: DOCUSATE SODIUM 100 MG CAPSULE PO SCH ×2 (10:46→20:44)
[2020-10-05] MEDS: CITALOPRAM 20 MG TABLET PO SCH (10:46)
[2020-10-05] MEDS: BACLOFEN 10 MG TABLET PO SCH ×3 (10:47→20:44)
[2020-10-05] MEDS: amLODIPine 5 MG TABLET PO SCH (10:48)
[2020-10-05] MEDS: METOPROLOL SUCCINATE 50 MG TAB.XL.24H PO SCH (10:49)
[2020-10-05] MEDS: THIAMINE 100 MG TABLET PO SCH (10:49)
[2020-10-05] MEDS: OMEPRAZOLE 20 MG CAPSULE PO SCH (10:49)
[2020-10-05] MEDS: ENOXAPARIN 40 MG/0.4 ML SYRINGE SQ SCH (10:50)
[2020-10-05] MEDS: NICOTINE 21 MG PATCH TOPICAL SCH (10:56)
[2020-10-05] MEDS: POLYETHYLENE GLYCOL 3350 17 GM PACKET PO SCH (10:59)
[2020-10-05] MEDS: cefTRIAXone 1 GM VIAL IV SCH (14:26)
[2020-10-06] MEDS: 0.9 % SODIUM CHLORIDE 10 ML SYRINGE IV SCH ×3 (07:05→21:06)
[2020-10-06] MEDS: FERROUS SULFATE 325 MG TABLET PO SCH ×2 (07:06→16:42)
[2020-10-06] MEDS: OMEPRAZOLE 20 MG CAPSULE PO SCH (07:06)
--- NOTE | 2020-10-06 07:19 | Internal Med Progress Note ---
SUBJECTIVE Subjective Patient information: Note initiated : 10/06/20 at 7:18 am Service Date, if different from initiated Date: [] Patient: Campbell Rodriguez 65 y/o M admitted on 10/04/20 for "wants placement in facility". Chief Complaint: [] Interval history: History of present illness: Mr. Rodriguez is a 65 year old M Presents the ED try to get back into a nursing facility. Patient was at [facility] and April for buttocks wound with maggots not caring for himself history of alcoholism. [facility] to nursing facility. He left AMA from the nursing facility about 3 days ago and been living in a motel. He went to [facility] today to try to get back in nursing facility but they would not take him and he needs to be reevaluated but did not meet any admission criteria so was discharged. He then came over to [facility] because he cannot take care of himself he cannot transition from wheelchair he is a high risk for a number of situations including Falling, pressure wounds and subsequent infection. The patient has nobody to help care for him while awaiting placement back in SNF In the ED is found to have a low sodium he does have a history of hyponatremia but this is acute on chronic. also found to have a UTI. 4/4 No overnight event or new complaints. 4/5 No overnight event or new complaints. No changes in status. Review of Systems: denies headache/fever/chills/nausea/vomiting/chest or abdominal pain/cough/dyspnea/diarrhea. Otherwise see above. Constitutional Vitals: Vital Signs Temp Pulse Resp BP Pulse Ox 98.6 F 66 16 148/72 94 10/06/20 07:08 10/06/20 07:08 10/06/20 07:08 10/06/20 07:08 10/06/20 07:08 Period Temp Pulse Resp BP Sys/May Pulse Ox Last 24 Hr 98.1 F-99 F 64-71 16-18 143-154/59-72 92-97 Intake and Output 10/05/20 10/06/20 10/06/20 21:59 05:59 13:59 Intake Total 3280 480 Output Total 900 800 Balance 2380 -320 Weight 79.605 kg Intake & Output: Intake & Output 10/05/20 10/06/20 10/06/20 21:59 05:59 13:59 Intake Total 3280 480 Output Total 900 800 Balance 2380 -320 Weight 79.605 kg Intake: Oral 3280 480 Output: Void Amount 900 800 Other: Urine Appearance Clear Clear Urine Color Bright Yellow Bright Yellow Exam: General: Alert, Awake, No acute Distress Eyes/N/T: EOMI, Head/Neck: neck supple, CV: RRR, No murmurs, Pulm: Clear b/l, no wheezing/rhonchi/rales Abd: soft, nontender, +BS x4 Ext: no clubbing/cyanosis, evidence of h/o edema, venous stasis Neuro: Alert, no focal deficits, moves all extremities, Skin: warm/dry OBJ DATA Labs CBC & Chem 7: 10/04/20 17:28 10/05/20 05:45 Labs: Abnormal Lab Results 10/05/20 10/04/20 10/04/20 05:45 19:57 17:43 RBC Hgb Hct POC Hct RDW Lymph # (Auto) Creatinine 0.6 L POC WB Ioniz Calcium Globulin 3.9 H Albumin/Globulin Ratio 0.8 L Urine Protein Trace A Urine Ketones 15 mg/dl A Urine Occult Blood Trace-intact A Ur Leukocyte Esterase Large A Urine RBC 4 H Urine WBC 19 H Urine Bacteria Mod A Urine Mucus Few A Ur Oxycodone Screen Suspect positive A 10/04/20 10/04/20 17:28 17:28 RBC 4.30 L Hgb 11.8 L Hct 36.9 L POC Hct 38 L RDW 17.1 H Lymph # (Auto) 1.43 L Creatinine POC WB Ioniz Calcium 1.12 L Globulin Albumin/Globulin Ratio Urine Protein Urine Ketones Urine Occult Blood Ur Leukocyte Esterase Urine RBC Urine WBC Urine Bacteria Urine Mucus Ur Oxycodone Screen Meds: Medications Acetaminophen (Acetaminophen 325 Mg Tablet) 650 mg PO Q6HP PRN PRN Reason: PAIN/FEVER > 101 Albuterol/Ipratropium (Ipratropium/Albuterol 3 Ml Ampul.Neb) 3 ml NEB Q4HP PRN PRN Reason: Shortness Of Breath Amlodipine Besylate (Amlodipine 5 Mg Tablet) 5 mg PO DAILY DAO Last Admin: 10/05/20 10:48 Dose: 5 mg Documented by: Baclofen (Baclofen 10 Mg Tablet) 5 mg PO TID [facility] Last Admin: 10/05/20 20:44 Dose: 5 mg Documented by: Ceftriaxone Sodium (Ceftriaxone 1 Gm Vial) 1 gm IV Q24H [facility]; Protocol Last Admin: 10/05/20 14:26 Dose: 1 gm Documented by: Citalopram Hydrobromide (Citalopram 20 Mg Tablet) 20 mg PO DAILY [facility] Last Admin: 10/05/20 10:46 Dose: 20 mg Documented by: Docusate Sodium (Docusate Sodium 100 Mg Capsule) 100 mg PO BID [facility] Last Admin: 10/05/20 20:44 Dose: 100 mg Documented by: Enoxaparin Sodium (Enoxaparin 40 Mg/0.4 Ml Syringe) 40 mg SQ DAILY [facility] Last Admin: 10/05/20 10:50 Dose: 40 mg Documented by: Ferrous Sulfate (Ferrous Sulfate 325 Mg Tablet) [facility] Last Admin: 10/06/20 07:06 Dose: 325 mg Documented by: Potassium Chloride 40 meq/ (Dextrose) 520 mls @ 130 mls/hr IV UD PRN PRN Reason: Potassium < 3 Magnesium Sulfate (Magnesium Sulfate) 2 gm in 50 mls @ 50 mls/hr IV UD PRN PRN Reason: Magnesium </= 1.6 Labetalol HCl (Labetalol 5 Mg/Ml Ml) 0 mg IV Q2HP PRN PRN Reason: Hypertension Metoprolol Succinate (Metoprolol Succinate 50 Mg Tab.Xl.24h) 50 mg PO DAILY [facility] Last Admin: 10/05/20 10:49 Dose: 50 mg Documented by: Nicotine (Nicotine 21 Mg Patch) 21 mg TOPICAL DAILY@1000 [facility] Last Admin: 10/05/20 10:56 Dose: 21 mg Documented by: Omeprazole (Omeprazole 20 Mg Capsule) 20 mg PO ACB [facility] Last Admin: 10/06/20 07:06 Dose: 20 mg Documented by: Ondansetron HCl (Ondansetron 4 Mg/2 Ml Vial) 4 mg IV Q4HP PRN PRN Reason: Nausea And Vomiting Oxycodone HCl (Oxycodone Hcl 5 Mg Tablet) 5 mg PO QIDP PRN; Protocol PRN Reason: Pain Last Admin: 10/05/20 21:42 Dose: 5 mg Documented by: Polyethylene Glycol (Polyethylene Glycol 3350 17 Gm Packet) 17 gm PO DAILY [facility] Last Admin: 10/05/20 10:59 Dose: Not Given Documented by: Potassium Chloride (Potassium Chloride 20 Meq Tablet) 40 meq PO UD PRN PRN Reason: Potssium is 3-3.5 Potassium Chloride (Potassium Chloride 20 Meq Tablet) 40 meq PO UD PRN PRN Reason: Potassium < 3 Senna (Sennosides 1 Tablet) 2 tab PO DAILYP PRN PRN Reason: Constipation Sodium Biphosphate/Sodium Phosphate (Fleets Adult Enema) 1 dose MD DAILYP PRN PRN Reason: Constipation Sodium Chloride (0.9 % Sodium Chloride 10 Ml Syringe) 10 ml IV Q8 [facility] Last Admin: 10/06/20 07:05 Dose: 10 ml Documented by: Thiamine HCl (Thiamine 100 Mg Tablet) 100 mg PO DAILY [facility] Last Admin: 10/05/20 10:49 Dose: 100 mg Documented by: A/P Narrative A/P Narrative: A: *Self-care deficit/Severe disability: pt is unsafe discharge from ED *UTI(enterococcus): *h/o alcoholism: Has not had any alcohol at the nursing facility and states he only has 3 beers since he got out 3 days ago *Anemia, chronic: *Tobacco abuse: *HTN: on norvasc *Depression: *buttock pressure ulcer P: -Amoxicillin -cont home norvas/BB -cont home baclofen -wound care -CM for placement -pt/ot -Looking cessation counseling -ppx: lovenox DNR Time Spent With Patient Time: Total time spent is greater than 50% in coordination of care (as documented) at patient's floor/unit and/or counseling patient: QUALITY Stroke Symptom Onset Unknown: No VTE Deep Vein Thrombosis/Pulmonary Embolism Present on Admission: No
[2020-10-06] MEDS: CITALOPRAM 20 MG TABLET PO SCH (09:13)
[2020-10-06] MEDS: BACLOFEN 10 MG TABLET PO SCH ×3 (09:13→21:03)
[2020-10-06] MEDS: amLODIPine 5 MG TABLET PO SCH (09:13)
[2020-10-06] MEDS: THIAMINE 100 MG TABLET PO SCH (09:13)
[2020-10-06] MEDS: METOPROLOL SUCCINATE 50 MG TAB.XL.24H PO SCH (09:13)
[2020-10-06] MEDS: DOCUSATE SODIUM 100 MG CAPSULE PO SCH ×2 (09:13→21:03)
[2020-10-06] MEDS: ENOXAPARIN 40 MG/0.4 ML SYRINGE SQ SCH (09:14)
[2020-10-06] MEDS: AMOXICILLIN 250 MG CAPSULE PO SCH ×3 (09:14→21:03)
[2020-10-06] MEDS: POLYETHYLENE GLYCOL 3350 17 GM PACKET PO SCH (09:14)
[2020-10-06] MEDS: NICOTINE 21 MG PATCH TOPICAL SCH (09:24)
[2020-10-07] MEDS: LABETALOL 5 MG/ML ML IV PRN ×2 (03:04→05:25)
[2020-10-07] MEDS: 0.9 % SODIUM CHLORIDE 10 ML SYRINGE IV SCH (05:25)
[2020-10-07] MEDS: BACLOFEN 10 MG TABLET PO SCH (08:13)
[2020-10-07] MEDS: OMEPRAZOLE 20 MG CAPSULE PO SCH (08:13)
[2020-10-07] MEDS: CITALOPRAM 20 MG TABLET PO SCH (08:13)
[2020-10-07] MEDS: THIAMINE 100 MG TABLET PO SCH (08:14)
[2020-10-07] MEDS: AMOXICILLIN 250 MG CAPSULE PO SCH (08:14)
[2020-10-07] MEDS: ENOXAPARIN 40 MG/0.4 ML SYRINGE SQ SCH (08:14)
[2020-10-07] MEDS: METOPROLOL SUCCINATE 50 MG TAB.XL.24H PO SCH (08:14)
[2020-10-07] MEDS: amLODIPine 5 MG TABLET PO SCH (08:14)
[2020-10-07] MEDS: FERROUS SULFATE 325 MG TABLET PO SCH (08:14)
[2020-10-07] MEDS: DOCUSATE SODIUM 100 MG CAPSULE PO SCH (08:14)
[2020-10-07] MEDS: POLYETHYLENE GLYCOL 3350 17 GM PACKET PO SCH (08:14)
[2020-10-07] MEDS: NICOTINE 21 MG PATCH TOPICAL SCH (11:32)
== END 2020-10-07 14:15 ==
LOC: ED 16:24 → MEDSUR 16:24
PROVIDERS: ADMIT Internal Medicine; ATTEND Internal Medicine